=== PATIENT | male | born 1990 | race Caucasian/White ===

== ENCOUNTER 2023-07-05 08:55 | Emergency (ER) | payer BC, OTHER ==
[2023-07-05] MEDS ORDERED: methylPREDNISolone Sodium Succinate 125 MG/2 ML SDV IVPUSH ONE (09:31)
[2023-07-05] MEDS ORDERED: Cyclobenzaprine 10 MG Tab PO ONE (09:32)
[2023-07-05] MEDS ORDERED: HYDROmorphone 1 MG/ML Syringe IVPUSH ONE ×2 (09:33→10:30)
== END 2023-07-05 11:40 | disposition home or self-care (01) ==
LOC: MW.ED 08:55
DX: M54.42 Lumbago with sciatica, left side (principal); Z88.6 Allergy status to analgesic agent
CPT/HCPCS: 96374; 96375; 96376; 99283; A9270; J1170; J2930; 99284